=== PATIENT | female | born 1995 | race African-American/Black ===

== ENCOUNTER 2021-04-16 08:50 | Emergency (ER) | payer MEDICAID, OTHER ==
[~2021-04-16] VITALS: Ht 172.7 cm; Wt 90.7 kg
[2021-04-16] MEDS ORDERED: PRED20TA PO (09:06)
[2021-04-16] MEDS ORDERED: predniSONE 10 MG TABLET ONE (09:12)
[2021-04-16] MEDS ORDERED: predniSONE 50 MG TABLET ONE (09:13)
[2021-04-16] MEDS ORDERED: diphenhydrAMINE 50 MG CAPSULE ONE (09:13)
[2021-04-16] MEDS ORDERED: diphenhydrAMINE 50 MG CAPSULE PO ONE (09:15)
[2021-04-16] MEDS ORDERED: predniSONE 20 MG TABLET PO ONE (09:15)
--- NOTE | 2021-04-16 09:20 | NUR ---
Patient discharged to home in stable condition. Written and verbal after care instructions given. Patient verbalizes understanding of instructions. Stressed follow up or return to ER for worsening s/s.
== END 2021-04-16 09:21 | disposition home or self-care (01) ==
LOC: ER 08:50
DX: R21 Rash and other nonspecific skin eruption (principal); R03.0 Elevated blood-pressure reading, without diagnosis of hypertension
CPT/HCPCS: 99283; J7512 ×2; Q0163; A4663